=== PATIENT | male | born 1975 | race Caucasian/White ===

== ENCOUNTER 2018-10-03 10:58 | Emergency (ER) | payer OTHER ==
[2018-10-03 11:37] LABS: PLATELET COUNT 246 10^3/uL (150-400)
[2018-10-03] MEDS ORDERED: LORazepam 1 MG TAB PO ONE (11:38)
--- NOTE | 2018-10-03 11:38 | EDPHY ---
H & P Stated Complaint: lightheaded Time Seen by Provider: 10/03/18 11:06 HPI/ROS: CHIEF COMPLAINT: Anxiety "I feel panicky" HISTORY OF PRESENT ILLNESS: 43-year-old male arrives via private vehicle. Patient was started on Irbesartan 150 mg daily 5 days ago for hypertension. He has been tolerating this well. Today is Wednesday. This weekend he drank slightly more alcohol than usual however states that was only moderate amount. He took his antihypertensive this morning and notes that soon after taking it started feel lightheaded, anxious and started panicking. Took his blood pressure which was elevated at 170 and came to the ER for evaluation. At this time he also noticed epigastric discomfort and left axillary pain. This was at 7:45 a.m. This morning. He has no complaints of pain PRIMARY CARE PROVIDER: Dr. Georgiana Lopes. Dr. Kaleb Barrett. REVIEW OF SYSTEMS: 10 systems reviewed and negative with the exception of the elements mentioned in the history of present illness PAST MEDICAL & SURGICAL HISTORY: hypertension SOCIAL HISTORY:4 cocktails per day PHYSICAL EXAM (Prior to examination, patient consented to physical exam, hands were washed and my usual and customary physical exam procedures followed) 1) GENERAL: Well-developed, well-nourished, alert and oriented. Appears anxious. 2) HEAD: Normocephalic, atraumatic 3) HEENT: Pupils equal, round, reactive to light bilaterally. Sclera anicteric. 4) NECK: Full range of motion, no meningeal signs. 5) LUNGS: Clear auscultation bilaterally, no wheezes, no rhonchi, no retractions. 6) HEART: Regular rate and rhythm, no murmur, no heave, no gallop. 7) ABDOMEN: No guarding, no rebound, no focal tenderness, negative McBurney's, negative Bonds's, negative Rovsing's, negative peritoneal sign, no epigastric discomfort 8) MUSCULOSKELETAL: Moving all extremities, no focal areas of tenderness, no obvious trauma. No peripheral edema or discoloration. Negative Homans no palpable cord 9) BACK: No CVA tenderness, no midline vertebral tenderness, no fluctuance, no step-off, no obvious trauma, no visual or palpable abnormality. 10) SKIN: No rash, no petechiae. 11) Psychiatric: Patient is oriented X 3, there is no agitation. DIFFERENTIAL DIAGNOSIS: In no particular order, including but not limited to myocardial ischemia, pulmonary embolus, chest wall pain, acute anxiety, pleural inflammation and pulmonary infectious causes. - Personal History Current Tetanus/Diphtheria Vaccine: Yes Current Tetanus Diphtheria and Acellular Pertussis (TDAP): Yes Tetanus Vaccine Date: 2007 - Medical/Surgical History Hx Asthma: No Hx Chronic Respiratory Disease: No Hx Diabetes: No Hx Cardiac Disease: No Hx Renal Disease: No Hx Cirrhosis: No Hx Alcoholism: No Hx HIV/AIDS: No Hx Splenectomy or Spleen Trauma: No Other PMH: appy/back surg, HTN, anxiety - Social History Smoking Status: Never smoked Constitutional: Initial Vital Signs Temperature (C) 36.9 C 10/03/18 11:02 Heart Rate 89 10/03/18 11:02 Respiratory Rate 16 10/03/18 11:02 Blood Pressure 170/118 H 10/03/18 11:02 O2 Sat (%) 97 10/03/18 11:02 O2 Delivery Mode Room Air Allergies/Adverse Reactions: No Known Allergies Allergy (Verified 10/03/18 11:01) Home Medications: Medication Instructions Recorded Irbesartan 10/03/18 Medical Decision Making - Diagnostics Imaging Results: Imaging Impressions Chest X-Ray 10/03/18 11:25 Impression: 1. Normal chest x-ray study. Images reviewed myself ED Course/Re-evaluation: 1:00 p.m.: Patient has been re-evaluated with serial exams. He remains hypertensive however blood pressure has decreased since oral Ativan and since being in the emergency department. He relates to me at this time numerous life stressors that have been occurring. Doubt hypertensive crisis. Doubt acute VA. I did discuss with him his elevated liver function tests and stressed the importance of close follow-up. We discussed possibilities for this including, but not limited to, medication adverse effect, alcohol use . Recommend moderation with alcohol use. Recommend close follow up with Dr. Kaleb Barrett. He feels comfortable being discharged. Patient feels comfortable being discharged. All questions and concerns addressed by myself. Patient given my usual and customary discharge precautions and instructions regarding their clinical impression. Care of patient under supervision of secondary supervising physician Dr Montgomery with whom I discussed case. - Data Points Laboratory Results: Laboratory Results 10/03/18 11:28 10/03/18 11:28 10/03/18 10/03/18 10/03/18 11:30 11:28 11:28 WBC 4.46 10^3/uL 10^3/uL (3.80-9.50) RBC 4.95 10^6/uL 10^6/uL (4.40-6.38) Hgb 15.8 g/dL g/dL (13.7-17.5) Hct 46.7 % % (40.0-51.0) MCV 94.3 fL fL (81.5-99.8) MCH 31.9 pg pg (27.9-34.1) MCHC 33.8 g/dL g/dL (32.4-36.7) RDW 12.6 % % (11.5-15.2) Plt Count 246 10^3/uL 10^3/uL (150-400) MPV 9.5 fL fL (8.7-11.7) Neut % (Auto) 64.3 % % (39.3-74.2) Lymph % (Auto) 23.1 % % (15.0-45.0) Wright % (Auto) 9.6 % % (4.5-13.0) Eos % (Auto) 1.3 % % (0.6-7.6) Baso % (Auto) 1.3 % % (0.3-1.7) Nucleat RBC Rel Count 0.0 % % (0.0-0.2) Absolute Neuts (auto) 2.86 10^3/uL 10^3/uL (1.70-6.50) Absolute Lymphs (auto) 1.03 10^3/uL 10^3/uL (1.00-3.00) Absolute Monos (auto) 0.43 10^3/uL 10^3/uL (0.30-0.80) Absolute Eos (auto) 0.06 10^3/uL 10^3/uL (0.03-0.40) Absolute Basos (auto) 0.06 10^3/uL 10^3/uL (0.02-0.10) Absolute Nucleated RBC 0.00 10^3/uL 10^3/uL (0-0.01) Immature Gran % 0.4 % % (0.0-1.1) Immature Gran # 0.02 10^3/uL 10^3/uL (0.00-0.10) Sodium 140 mEq/L mEq/L (135-145) Potassium 4.5 mEq/L mEq/L (3.5-5.2) Chloride 103 mEq/L mEq/L (97-110) Carbon Dioxide 25 mEq/l mEq/l (22-31) Anion Gap 12 mEq/L mEq/L (6-14) BUN 16 mg/dL mg/dL (7-23) Creatinine 0.9 mg/dL mg/dL (0.7-1.3) Estimated GFR > 60 Glucose 98 mg/dL mg/dL (70-100) Calcium 10.1 mg/dL mg/dL (8.5-10.4) Total Bilirubin 0.5 mg/dL mg/dL (0.1-1.4) Conjugated Bilirubin 0.3 mg/dL mg/dL (0.0-0.5) Unconjugated Bilirubin 0.2 mg/dL mg/dL (0.0-1.1) AST 127 IU/L H IU/L (17-59) ALT 130 IU/L H IU/L (21-72) Alkaline Phosphatase 128 IU/L H IU/L (38-126) POC Troponin I 0.00 ng/mL ng/mL (0.00-0.08) Total Protein 7.8 g/dL g/dL (6.3-8.2) Albumin 4.6 g/dL g/dL (3.5-5.0) Lipase 131 IU/L IU/L (23-300) Medications Given: Discontinued Medications Lorazepam (Ativan) 1 mg PO EDNOW ONE Stop: 10/03/18 11:39 Last Admin: 10/03/18 11:42 Dose: 1 mg Point of Care Test Results: Chemistry 10/03/18 11:30 POC Troponin I 0.00 ng/mL ng/mL (0.00-0.08) Departure - Departure Disposition: Home, Routine, Self-Care Clinical Impression: Anxiety, LFT elevation Hypertension Qualifiers: Hypertension type: unspecified Qualified Code(s): I10 - Essential (primary) hypertension Condition: Good Instructions: Hypertension (ED), Anxiety (ED) Additional Instructions: Take her medication as directed. Please exercise moderation with alcohol use. You need to have your liver function tests recheck. Return to the ER if you develop chest pain, shortness of breath, feel that you will pass out or any other symptoms that concern you. Referrals: Kaleb Barrett MD [Medical Doctor] - 1-2 days without fail
[2018-10-03 13:35] VITALS: BP 153/105
--- NOTE | 2018-10-03 13:49 | CPEKG ---
Test Reason : OPEN Blood Pressure : / mmHG Vent. Rate : 074 BPM Atrial Rate : 073 BPM P-R Int : 164 ms QRS Dur : 081 ms QT Int : 363 ms P-R-T Axes : 058 052 028 degrees QTc Int : 403 ms Sinus rhythm Confirmed by Lopez Montgomery ([id number]) on 10/03/2018 1:49:09 PM Referred By: Lopez Montgomery Confirmed By:Lopez Montgomery
== END 2018-10-03 13:35 | disposition home or self-care (01) ==
DX: F41.9 Anxiety disorder, unspecified (principal); R94.5 Abnormal results of liver function studies; I10 Essential (primary) hypertension
CPT/HCPCS: 84484-ER